=== PATIENT | male | born 1955 | race Caucasian/White ===

== ENCOUNTER 2022-01-01 06:09 | Inpatient (IN) | payer MEDICARE, BC ==
[2022-01-01] MEDS ORDERED: Morphine 4 MG/ML VIAL ONE ×2 (06:17→07:41)
[2022-01-01] MEDS ORDERED: Ondansetron PF 4 MG/2 ML Vial ONE (06:18)
[2022-01-01 06:59] LABS: #Eosinphils 1.7 thou/uL (0.0-0.7); #Lymphocytes 0.8 thou/uL (1.20-3.40); #Monocytes 0.7 thou/uL (0.11-0.59); %Basophils 0.4 % (0.0-1.0); %Eosinophils 23.6 % (0.0-10.0); %Lymphocytes 11.3 % (21.0-51.0); %Monocytes 9.3 % (0.0-10.0); %Neutrophils 55.3 % (42.0-75.0); Mean Corpuscular HGB CONC 32.4 g/dL (32.0-36.0); Mean Corpuscular Hemoglobin 32.8 pg (27.0-31.0); Mean Platelet Volume 7.3 fL (7.4-10.4); Platelet Count 240 thou/uL (130-400); Red Blood Cell (RBC) Count 4.58 mill/uL (4.70-6.10); White Blood Cell (WBC) Count 7.2 thou/uL (4.8-10.8)
[2022-01-01 07:20] LABS: ALT (SGPT) 14 U/L (8-55); AST (SGOT) 19 U/L (5-34); Albumin 3.5 g/dL (3.4-4.8); Alkaline Phosphatase 64 U/L (40-110); Anion Gap 7 mmol/L (10-20); BUN (Urea Nitrogen) 27 mg/dL (8.4-25.7); Bilirubin, Total 0.6 mg/dL (0.2-1.2); Calc. Creatinine Clearance 0 mL/min (70-130); Calcium 8.3 mg/dL (7.8-10.44); Carbon Dioxide 29 mmol/L (23-31); Chloride 106 mmol/L (98-107); Estimated GFR 95; Globulin 2.7 g/dL (2.4-3.5); Glucose 101 mg/dL (80-115); Lipase 35 U/L (8-78); Potassium 3.4 mmol/L (3.5-5.1); Protein, Total 6.2 g/dL (5.8-8.1); Sodium 139 mmol/L (136-145)
[2022-01-01] MEDS ORDERED: Iopamidol-370 76% 500 ML 1 ML ONE (08:35)
[2022-01-01] MEDS ORDERED: HYDROcodone/Acetaminophen 7.5/325 mg Tablet PO PRN (09:16)
[2022-01-01] MEDS ORDERED: Polyethylene Glycol 3350 17 GM Packet PO PRN (09:20)
[2022-01-01] MEDS ORDERED: Docusate 100 MG CAP PO PRN (09:20)
[2022-01-01] MEDS ORDERED: cefTRIAXone\\ROCEPHIN 2 GM VIAL ONE (09:27)
[2022-01-01] MEDS ORDERED: Azithromycin 500 MG VIAL ONE (09:27)
[2022-01-01] MEDS ORDERED: Potassium Chloride 20 MEQ TAB PO SCH (09:30)
[2022-01-01] MEDS ORDERED: Azithromycin 500 MG in Sodium Chloride 0.9% 250 ML 250 ML IVPB SCH (09:30)
[2022-01-01] MEDS ORDERED: cefTRIAXone\\ROCEPHIN 1 GM in Sodium Chloride 0.9% 100 ML IVPB SCH (09:30)
[2022-01-01 10:06] LABS: SARS-CoV-2 NAA Rapid Test Not Detected (NotDetected)
[2022-01-01 11:12] VITALS: BMI 27.9
[2022-01-01] MEDS ORDERED: Acetaminophen 325 MG TAB ONE (11:33)
[2022-01-01] MEDS: Acetaminophen 325 MG TAB PO PRN (11:35)
[2022-01-01] MEDS ORDERED: Morphine 2 MG/ML VIAL SLOW IVP PRN (12:18)
[2022-01-01] MEDS ORDERED: Piperacillin/Tazobactam 4.5 GM in Sodium Chloride 0.9% 100 ML IVPB SCH (14:00)
[2022-01-01] MEDS: Morphine 2 MG/ML VIAL SLOW IVP PRN ×2 (14:51→20:24)
[2022-01-01] MEDS: Guaifenesin DM 100-10/5 ML UDCUP PO PRN ×2 (14:57→20:23)
[2022-01-01] MEDS ORDERED: guaiFENesin/Codeine 200 mg/20 mg 10 ml Cup PO PRN (16:10)
[2022-01-01] MEDS: Benzonatate 100 MG CAP PO PRN ×2 (17:44→21:47)
[2022-01-01 18:09] LABS: Hemoglobin 14.7 g/dL (14.0-18.0)
[2022-01-01] MEDS: Melatonin 3 MG TAB PO PRN (21:47)
[2022-01-01] MEDS: Cepastat Lozenges 1 LOZ PO PRN (21:48)
[2022-01-02] MEDS: Morphine 2 MG/ML VIAL SLOW IVP PRN ×3 (00:51→10:16)
[2022-01-02] MEDS: Guaifenesin DM 100-10/5 ML UDCUP PO PRN ×4 (00:51→21:04)
[2022-01-02] MEDS: Acetaminophen 325 MG TAB PO PRN ×4 (03:50→17:56)
[2022-01-02] MEDS: Benzonatate 100 MG CAP PO PRN ×4 (03:51→17:56)
[2022-01-02] MEDS: Cepastat Lozenges 1 LOZ PO PRN ×4 (03:52→17:56)
[2022-01-02 04:14] LABS: Hemoglobin 14.5 g/dL (14.0-18.0); Mean Corpuscular Hemoglobin 33.9 pg (27.0-31.0); Mean Platelet Volume 7.3 fL (7.4-10.4); Platelet Count 207 thou/uL (130-400); RBC Distribution Width 12.1 % (11.5-14.5); Red Blood Cell (RBC) Count 4.27 mill/uL (4.70-6.10); White Blood Cell (WBC) Count 8.8 thou/uL (4.8-10.8)
[2022-01-02 04:32] LABS: Anion Gap 11 mmol/L (10-20); BUN (Urea Nitrogen) 21 mg/dL (8.4-25.7); Calc. Creatinine Clearance 118 mL/min (70-130); Calcium 8.5 mg/dL (7.8-10.44); Carbon Dioxide 28 mmol/L (23-31); Chloride 105 mmol/L (98-107); Estimated GFR 98; Glucose 90 mg/dL (80-115); Potassium 3.8 mmol/L (3.5-5.1); Sodium 140 mmol/L (136-145)
[2022-01-02] MEDS: cefTRIAXone\\ROCEPHIN 1 GM in Sodium Chloride 0.9% 100 ML IVPB SCH (08:40)
[2022-01-02] MEDS: Azithromycin 500 MG in Sodium Chloride 0.9% 250 ML 250 ML IVPB SCH (10:27)
[2022-01-02] MEDS ORDERED: methylPREDNISolone Sod Succ/PF 125 MG/2 ML VIAL IVP SCH (15:00)
[2022-01-02 15:31] LABS: Legionella Urinary Ag Negative (Negative)
[2022-01-02 16:03] VITALS: BP 117/78
[2022-01-02] MEDS: Melatonin 3 MG TAB PO PRN (21:04)
[2022-01-03] MEDS: Cepastat Lozenges 1 LOZ PO PRN ×4 (00:38→18:39)
[2022-01-03 04:05] LABS: #Lymphocytes 0.7 thou/uL (1.20-3.40); #Monocytes 0.2 thou/uL (0.11-0.59); #Neutrophils 7.9 thou/uL (1.40-6.50); %Basophils 0.2 % (0.0-1.0); %Eosinophils 0.3 % (0.0-10.0); %Monocytes 2.1 % (0.0-10.0); %Neutrophils 89.4 % (42.0-75.0); Hemoglobin 14.6 g/dL (14.0-18.0); Mean Corpuscular HGB CONC 33.9 g/dL (32.0-36.0); Mean Corpuscular Hemoglobin 33.6 pg (27.0-31.0); Mean Corpuscular Volume 99.4 fL (78.0-98.0); Mean Platelet Volume 7.3 fL (7.4-10.4); Platelet Count 220 thou/uL (130-400); RBC Distribution Width 11.8 % (11.5-14.5); Red Blood Cell (RBC) Count 4.34 mill/uL (4.70-6.10); White Blood Cell (WBC) Count 8.9 thou/uL (4.8-10.8)
[2022-01-03] MEDS: Acetaminophen 325 MG TAB PO PRN ×2 (06:29→20:20)
[2022-01-03] MEDS: Guaifenesin DM 100-10/5 ML UDCUP PO PRN (06:30)
[2022-01-03] MEDS: cefTRIAXone\\ROCEPHIN 1 GM in Sodium Chloride 0.9% 100 ML IVPB SCH (07:46)
[2022-01-03] MEDS: predniSONE 50 MG TAB PO SCH (07:46)
[2022-01-03] MEDS: Fluticasone Propionate Nasal Spray 16 gm Bottle NASAL SCH (09:38)
[2022-01-03] MEDS: Azithromycin 500 MG in Sodium Chloride 0.9% 250 ML 250 ML IVPB SCH (09:39)
[2022-01-03] MEDS: Benzonatate 100 MG CAP PO PRN ×2 (12:01→18:39)
[2022-01-03] MEDS: Melatonin 3 MG TAB PO PRN (20:20)
[2022-01-04] MEDS: Guaifenesin DM 100-10/5 ML UDCUP PO PRN ×2 (00:53→09:15)
[2022-01-04 09:07] VITALS: TEMP 98.2
[2022-01-04] MEDS: predniSONE 50 MG TAB PO SCH (09:09)
[2022-01-04] MEDS: Fluticasone Propionate Nasal Spray 16 gm Bottle NASAL SCH (09:09)
[2022-01-04] MEDS: cefTRIAXone\\ROCEPHIN 1 GM in Sodium Chloride 0.9% 100 ML IVPB SCH (09:10)
[2022-01-04] MEDS: Azithromycin 500 MG in Sodium Chloride 0.9% 250 ML 250 ML IVPB SCH (09:42)
== END 2022-01-04 11:15 | disposition home or self-care (01) | DRG 195 ==
LOC: ERS 06:09 → ERHOLD 09:16 → IMCU/EMU 13:46
PROVIDERS: ADMIT Internal Medicine; ATTEND Internal Medicine
DX: J15.9 Unspecified bacterial pneumonia (principal); M79.81 Nontraumatic hematoma of soft tissue; F17.210 Nicotine dependence, cigarettes, uncomplicated; Z20.822 Contact with and (suspected) exposure to COVID-19; E87.6 Hypokalemia; K59.00 Constipation, unspecified; K29.70 Gastritis, unspecified, without bleeding; Z88.5 Allergy status to narcotic agent; Z98.890 Other specified postprocedural states; Z82.49 Family history of ischemic heart disease and other diseases of the circulatory system
CPT/HCPCS: 36415; 71045; 71250; 74177; 80048; 80053; 83605; 83690; 83880; 84484; 85025; 85027; 87040; 87070; 87205; 87899; 93005; 94640; 96365; 96367; 96375; 96376; J0456; J0696; J2270; J2405; J2930; J3490; J7050; J7512; J7620; Q9967

== ENCOUNTER 2022-07-16 07:46 | Outpatient (CLI) | payer MEDICARE, BC ==
[2022-07-16] MEDS ORDERED: Magnevist 469MG/ML 20 ML VIAL ONE (12:03)
== END 2022-07-16 07:47 | disposition home or self-care (01) ==
LOC: TBSIIMAG 07:46
PROVIDERS: ATTEND Neurological Surgery
DX: M54.2 Cervicalgia (principal); M47.812 Spondylosis without myelopathy or radiculopathy, cervical region; Z98.1 Arthrodesis status
CPT/HCPCS: 72156; A9579

== ENCOUNTER 2023-05-06 11:40 | Outpatient (CLI) | payer MEDICARE, BC | END 2023-05-06 11:41 | disposition home or self-care (01) | LOC: RAD 11:40 | PROVIDERS: ATTEND Physician Assistant Medical | DX: K21.00 Gastro-esophageal reflux disease with esophagitis, without bleeding (principal); Z79.51 Long term (current) use of inhaled steroids; R10.84 Generalized abdominal pain | CPT/HCPCS: 74220 ==

== ENCOUNTER 2023-07-13 05:57 | Outpatient (CLI) | payer MEDICARE, BC ==
[2023-07-13 07:37] LABS: #Basophils 0.1 10x3/uL (0.0-0.2); #Eosinphils 0.2 10x3/uL (0.0-0.5); #Monocytes 0.9 10x3/uL (0.0-1.1); #Neutrophils 5.6 10x3/uL (1.5-8.4); %Eosinophils 2.6 % (0.0-6.0); %Lymphocytes 18.9 % (18.0-47.0); %Monocytes 10.6 % (0.0-10.0); %Neutrophils 66.3 % (40.0-75.0); Hemoglobin 16.6 g/dL (13.5-17.5); Mean Corpuscular HGB CONC 33.9 g/dL (32.0-36.0); Mean Corpuscular Hemoglobin 32.4 pg (27.0-33.0); Mean Corpuscular Volume 95.7 fl (81.2-95.1); Mean Platelet Volume 9.7 fl (7.4-10.4); Platelet Count 235 10x3/uL (150-450); RBC Distribution Width 12.5 % (11.5-14.5); Red Blood Cell (RBC) Count 5.12 10x6/uL (4.32-5.72); White Blood Cell (WBC) Count 8.4 10x3/uL (3.5-10.5)
[2023-07-13 07:48] LABS: Anion Gap 14 mmol/L (10-20); BUN (Urea Nitrogen) 17 mg/dL (8.4-25.7); Calc. Creatinine Clearance 0 mL/min (70-130); Calcium 9.3 mg/dL (7.8-10.44); Carbon Dioxide 26 mmol/L (23-31); Chloride 104 mmol/L (98-107); Estimated GFR 73; Glucose 103 mg/dL (80-115); Potassium 4.7 mmol/L (3.5-5.1); Sodium 139 mmol/L (136-145)
== END 2023-07-13 05:58 | disposition home or self-care (01) ==
LOC: LABBT 05:57
PROVIDERS: ATTEND Orthopaedic Surgery Hand Surgery
DX: Z01.818 Encounter for other preprocedural examination (principal); M19.041 Primary osteoarthritis, right hand
CPT/HCPCS: 80048; 85025; 93005; 93010

== ENCOUNTER 2023-07-17 08:39 | Day surgery (SDC) | payer MEDICARE, BC ==
[2023-07-13 07:14] VITALS: BMI 27.9
[2023-07-17] MEDS ORDERED: Lidocaine 1% PF 5 ML VIAL ONE (11:04)
[2023-07-17] MEDS ORDERED: PROPOFOL 40 ML ONE (11:04)
[2023-07-17] MEDS ORDERED: Lidocaine 2% 6 ML (Jelly) SYR ONE (11:05)
[2023-07-17] MEDS ORDERED: CEFAZOLIN 2 GM VIAL ONE (11:31)
[2023-07-17] MEDS ORDERED: Sodium Chloride 0.9% 100 ML ONE (11:31)
[2023-07-17] MEDS ORDERED: Bacitracin Zinc Ointment 30 gm TUBE ONE (11:39)
[2023-07-17] MEDS ORDERED: Bupivacaine PF 0.5% 30 ML VIAL ONE (11:40)
[2023-07-17] MEDS ORDERED: Dexamethasone 20 MG/5 ML VIAL ONE (11:47)
[2023-07-17] MEDS ORDERED: Ondansetron PF 4 MG/2 ML Vial ONE (11:47)
[2023-07-17] MEDS ORDERED: Ketorolac Tromethamine 30 MG (1 mL) VIAL ONE ×2 (11:47→14:26)
[2023-07-17] MEDS ORDERED: ePHEDrine Sulfate 50 MG/10 ML VIAL ONE (12:02)
== END 2023-07-17 15:15 | disposition home or self-care (01) ==
LOC: SDC 08:39
PROVIDERS: ATTEND Orthopaedic Surgery Hand Surgery
PROC: 0RRU0JZ Replacement of Right Metacarpophalangeal Joint with Synthetic Substitute, Open Approach (ICD-10-PCS; principal; 2023-07-17)
DX: M19.041 Primary osteoarthritis, right hand (principal); F17.290 Nicotine dependence, other tobacco product, uncomplicated; Z88.5 Allergy status to narcotic agent; Z88.2 Allergy status to sulfonamides
CPT/HCPCS: 26531; 73140; A6223; C1776; J0665; J1100; J1885; J2405; J2704; J3490

== ENCOUNTER 2023-11-18 14:38 | Outpatient (CLI) | payer MEDICARE, BC | END 2023-11-18 14:39 | disposition home or self-care (01) | LOC: BICCT 14:38 | PROVIDERS: ATTEND Orthopaedic Surgery Hand Surgery | DX: M19.041 Primary osteoarthritis, right hand (principal); Z98.890 Other specified postprocedural states ==